=== PATIENT | female | born 1975 | race Caucasian/White ===

== ENCOUNTER 2016-07-19 12:31 | Emergency (ER) | payer BC ==
[2016-07-19 12:48] VITALS: BP 143/89; PULSE 94; TEMP 98.3; BMI 40.7
[2016-07-19] MEDS ORDERED: KETOROLAC TROMETHAMINE 60 MG/2 ML VIAL IM ONE (13:29)
[2016-07-19] MEDS ORDERED: KETOROLAC TROMETHAMINE 60 MG/2 ML VIAL ONE (13:32)
--- NOTE | 2016-07-19 13:38 | PDOC ---
History of Present Illness - General Chief Complaint: Pain Stated Complaint: LT HIP PAIN Time Seen by Provider: 07/19/16 13:06 History Source: Patient - History of Present Illness Occurred: reports: yesterday Lower Extremity Pain Location: left: hip Past History - Past Medical History Allergies/Adverse Reactions: Allergies Allergy/AdvReac Type Severity Reaction Status Date / Time No Known Allergies Allergy Verified 07/19/16 12:49 Home Medications: Ambulatory Orders Meloxicam [Mobic] 15 mg PO ASDIR 07/19/16 Other medical history: Gout - Psycho/Social/Smoking Cessation Hx Suicidal Ideation: No Smoking History: Current every day smoker Number of Cigarettes Smoked Daily: 4 Information on smoking cessation initiated: No Hx Alcohol Use: Yes Drug/Substance Use Hx: No Substance Use Type: Alcohol Review of Systems - Review of Systems Constitutional: No: Chills, Fever Musculoskeletal: Yes: Joint Pain. No: Joint Swelling Neurological: No: Numbness, Tingling, Weakness *Physical Exam - Vital Signs Last Vital Signs Temp Pulse Resp BP Pulse Ox 98.3 F 94 H 16 143/89 99 07/19/16 12:44 07/19/16 12:44 07/19/16 12:44 07/19/16 12:44 07/19/16 12:44 - Physical Exam General Appearance: Yes: Appropriately Dressed. No: Apparent Distress HEENT: positive: Normal Voice Neck: positive: Supple Respiratory/Chest: negative: Respiratory Distress Gastrointestinal/Abdominal: positive: Soft. negative: Tender Extremity: positive: Normal Capillary Refill, Tender (+ttp to lateral L hip near greater trochanter) Integumentary: positive: Dry, Warm Neurologic: positive: Fully Oriented, Alert, Normal Mood/Affect Medical Decision Making - Medical Decision Making 07/19/16 13:45 41 yo F, gout to R great toe, takes mobic as needed, p/w pain to L hip that started yesterday, worse when sitting from a standing position. Took otc w/ some relief but pain persists today. No lower back pain, lower extremity weakness, numbness or tingling. No history of trauma. No history of similar symptoms. See exam Atraumatic LLE pain +ttp to lateral L hip near greater trochanter ?trochanteric bursitis vs arthritis vs strain -pain control in ED and reassess 07/19/16 13:58 07/19/16 14:29 Pt reports some improvement w/ meds. Dc w/ otc meds and pmd f/u if pain persists *DC/Admit/Observation/Transfer Diagnosis at time of Disposition: Hip pain, left - Discharge Dispostion Disposition: HOME Condition at time of disposition: Improved - Patient Instructions Printed Discharge Instructions: Help for Hip Pain Additional Instructions: Take motrin for pain as needed and follow up with your PMD if pain continues
== END 2016-07-19 14:36 | disposition home or self-care (01) ==
LOC: JERFT 12:31
PROC: 3E0233Z Introduction of Anti-inflammatory into Muscle, Percutaneous Approach (ICD-10-PCS; principal; 2016-07-19)
DX: M25.552 Pain in left hip (principal)
CPT/HCPCS: 99281-25

== ENCOUNTER 2017-07-10 08:45 | Day surgery (SDC) | payer BC ==
[2017-07-02 12:32] VITALS: BMI 42.1
[2017-07-10] MEDS ORDERED: PROPOFOL 20 ML ONE ×2 (09:52)
[2017-07-10 11:13] VITALS: TEMP 97.6
[2017-07-10 11:30] VITALS: BP 131/75; PULSE 68
--- NOTE | 2017-07-12 16:34 | PATH ---
Surgical Pathology Report Patient Name: DESHAUN MAIER [facility]. Rec. #: [id number] /Age/Gender: 1975 (Age: 42) / F Account: [id number] Location: [facility]-ENDOSCOPY Taken: 07/10/2017 Received: 07/10/2017 Reported: 07/12/2017 Physicians: Laura Justice M.D. Specimen(s) Received A: TRANSVERSE COLON B: BX CECUM Clinical History polyps Final Diagnosis A. TRANSVERSE COLON, BIOPSY: COLONIC MUCOSA SHOWING BENIGN/REACTIVE LYMPHOID AGGREGATE. B. CECUM, POLYP, POLYPECTOMY: TUBULAR ADENOMA. Electronically Signed Mary Tillman M.D. Gross Description A. Received in formalin, labeled "transverse colon" are 2 coleman, irregular portions of soft tissue measuring 0.3 and 0.4 cm. in greatest dimension. The specimens are submitted in toto in one cassette. B. Received in formalin, labeled "cecum" are 3 coleman, polypoid portions of soft tissue ranging from 0.6-0.8 cm. in greatest dimension. The specimens are submitted in toto in one cassette. 07/11/2017 saudi07/11/2017
== END 2017-07-10 11:35 | disposition home or self-care (01) ==
LOC: FASU-ENDO 08:45
PROVIDERS: ATTEND Internal Medicine Gastroenterology
PROC: 0DBL8ZX Excision of Transverse Colon, Via Natural or Artificial Opening Endoscopic, Diagnostic (ICD-10-PCS; 2017-07-10)
PROC: 0DBH8ZX Excision of Cecum, Via Natural or Artificial Opening Endoscopic, Diagnostic (ICD-10-PCS; principal; 2017-07-10 10:19)
DX: Z12.11 Encounter for screening for malignant neoplasm of colon (principal); Z80.0 Family history of malignant neoplasm of digestive organs; K64.0 First degree hemorrhoids; D12.0 Benign neoplasm of cecum
CPT/HCPCS: 84703